=== PATIENT | male | born 1935 | race Caucasian/White ===

== ENCOUNTER → 2016-11-06 | Outpatient (CLI) | payer MEDICARE ==
[~2016-11-06] MED LIST: ASPIRIN EC81 MG PO; B-1100 MG PO; BRILINTA 90 MG90 MG PO; BUSPAR 10MG10 MG PO; COREG 3.125M3.125 MG PO; CYMBALTA 30 MG30 MG PO; DESYREL 50 MG T50 MG PO; ENTRESTO PO; LANOXIN125 MCG PO; LASIX20 MG PO; LIPITOR TAB 2020 MG PO; LORTAB 5-325 M1 EACH PO; PRADAXA150 MG PO; ZESTRIL2.5 MG PO
== END ==
LOC: CT 08:30
DX: J32.8 Other chronic sinusitis (principal); J32.0 Chronic maxillary sinusitis
CPT/HCPCS: 70486